=== PATIENT | male | born 1990 | race Hispanic/Latino ===

== ENCOUNTER 2020-02-13 15:28 | Emergency (ER) | payer BC, OTHER ==
[2020-02-13 15:51] LABS: Absolute Lymphocytes (CBC) 2.8 K/uL (0.7-4.9); Basophils % 0.7 % (0-1.3); Hematocrit 43.1 % (39.6-49.0); Lymphocytes % 32.3 % (15.3-44.8); RBC Red Blood Cell Count 4.99 M/uL (4.33-5.43)
[2020-02-13 16:03] LABS: Albumin 4.5 g/dL (3.4-5.0); Bilirubin Direct 0.2 mg/dL (0-0.2); Bilirubin Total 0.6 mg/dL (0.2-1.0); Potassium 3.3 mmol/L (3.5-5.1); Protein, Total 8.2 g/dL (6.4-8.2)
[2020-02-13] MEDS ORDERED: POTASSIUM CL SA 10 MEQ TAB PO ONE (16:35)
[2020-02-13] MEDS ORDERED: NA CHLORIDE 0.9% 1,000 ML ONE (16:35)
[2020-02-13 18:07] LABS: Potassium 3.5 mmol/L (3.5-5.1)
[2020-02-13 18:12] LABS: Urine Blood NEGATIVE (NEG); Urine Glucose NEGATIVE (NEG); Urine Protein NEGATIVE (NEG); Urine Specific Gravity 1.025 (1.005-1.030); Urine pH 6.5 (5.0-7.0)
--- NOTE | 2020-02-13 18:52 | EDPHYS ---
Physician Documentation [facility] Name: Curtis Carbone Age: 29 yrs Sex: Male : 1990 Arrival Date: 02/13/2020 Time: 15:32 Bed 19 Private MD: ED Physician Alvarado Doss HPI: 02/12 15:36 This 29 yrs old Male presents to ER via Unassigned with complaints of kb overheated, abd cramps. 15:36 The patient presents with abdominal pain that is diffuse. Onset: The symptoms/episode kb began/occurred just prior to arrival. The symptoms do not radiate. Associated signs and symptoms: Pertinent positives: "shaking". The symptoms are described as crampy. Modifying factors: The symptoms are alleviated by nothing, the symptoms are aggravated by nothing. Severity of pain: At its worst the pain was mild in the emergency department the pain is unchanged. The patient has not experienced similar symptoms in the past. The patient has not recently seen a physician. Pt reports he has been working outside since 0600 and started having abd cramps and shaking just [employer]. States he has been drinking water throughout the day. Believes he has heat exhaustion.. Historical: - Allergies: 15:32 Sulfa (Sulfonamide Antibiotics); aa5 - PMHx: 15:32 None; aa5 - PSHx: 15:32 Cholecystectomy; aa5 - Immunization history:: Adult Immunizations up to date. - Social history:: Smoking status: Patient denies any tobacco usage or history of. ROS: 15:36 ENT: Negative for injury, pain, and discharge, Neck: Negative for injury, pain, and kb swelling, Cardiovascular: Negative for chest pain, palpitations, and edema, Respiratory: Negative for shortness of breath, cough, wheezing, and pleuritic chest pain, : Negative for injury, bleeding, discharge, and swelling, MS/Extremity: Negative for injury and deformity, Skin: Negative for injury, rash, and discoloration. 15:36 Constitutional: Positive for chills, Negative for body aches, fatigue, fever, malaise, poor PO intake, weight loss. 15:36 Abdomen/GI: Positive for abdominal cramps, Negative for nausea, vomiting, and diarrhea. Exam: 15:39 Constitutional: This is a well developed, well nourished patient who is awake, alert, kb and in no acute distress. Head/Face: Normocephalic, atraumatic. Neck: Trachea midline, no thyromegaly or masses palpated, and no cervical lymphadenopathy. Supple, full range of motion without nuchal rigidity, or vertebral point tenderness. No Meningismus. Chest/axilla: Normal chest wall appearance and motion. Nontender with no deformity. No lesions are appreciated. Cardiovascular: Regular rate and rhythm with a normal S1 and S2. No gallops, murmurs, or rubs. Normal PMI, no JVD. No pulse deficits. Respiratory: Lungs have equal breath sounds bilaterally, clear to auscultation and percussion. No rales, rhonchi or wheezes noted. No increased work of breathing, no retractions or nasal flaring. Abdomen/GI: Soft, non-tender, with normal bowel sounds. No distension or tympany. No guarding or rebound. No evidence of tenderness throughout. Skin: Warm, dry with normal turgor. Normal color with no rashes, no lesions, and no evidence of cellulitis. MS/ Extremity: Pulses equal, no cyanosis. Neurovascular intact. Full, normal range of motion. Neuro: Awake and alert, GCS 15, oriented to person, place, time, and situation. Cranial nerves II-XII grossly intact. Motor strength 5/5 in all extremities. Sensory grossly intact. Cerebellar exam normal. Normal gait. Vital Signs: 15:35 BP 114 / 77; Pulse 84; Resp 16 S; Pulse Ox 100% on R/A; Weight 63.05 kg (R); Height 5 ca1 ft. 5 in. (165.10 cm) (R); 16:34 BP 117 / 73; Pulse 82; Resp 20 S; Pulse Ox 100% on R/A; ca1 17:20 BP 113 / 68; Pulse 79; Resp 19 S; Pulse Ox 100% on R/A; ca1 17:50 BP 108 / 82; Pulse 74; Resp 15 S; Pulse Ox 100% on R/A; ca1 18:50 BP 105 / 62; Pulse 75; Resp 16 S; Pulse Ox 100% on R/A; ca1 15:35 Body Mass Index 23.13 (63.05 kg, 165.10 cm) ca1 MDM: 15:32 Patient medically screened. kb 15:39 Data reviewed: vital signs, nurses notes. Data interpreted: Pulse oximetry: on room air kb is 100 %. Interpretation: normal. 16:47 ED course: Will recheck cpk and creatinine after 2L NS bolus. kb 18:50 Counseling: I had a detailed discussion with the patient and/or guardian regarding: the kb historical points, exam findings, and any diagnostic results supporting the discharge/admit diagnosis, lab results, the need for outpatient follow up, a family practitioner, to return to the emergency department if symptoms worsen or persist or if there are any questions or concerns that arise at home. 02/12 15:33 Order name: Basic Metabolic Panel; Complete Time: 16:05 kb 02/12 15:33 Order name: CBC with Diff; Complete Time: 16:34 kb 02/12 15:33 Order name: Hepatic Function; Complete Time: 16:05 kb 02/12 15:33 Order name: Lipase; Complete Time: 16:05 kb 02/12 15:33 Order name: CPK; Complete Time: 16:05 kb 02/12 17:37 Order name: Basic Metabolic Panel; Complete Time: 18:50 kb 02/12 15:33 Order name: IV Saline Lock; Complete Time: 15:34 kb 02/12 15:33 Order name: Labs collected and sent; Complete Time: 15:35 kb 02/12 15:33 Order name: Urine Dipstick-Ancillary (obtain specimen); Complete Time: 17:56 kb 04 17:37 Order name: CPK; Complete Time: 18:50 kb 04 17:57 Order name: Urine Dipstick--Ancillary (enter results); Complete Time: 18:50 em1 Administered Medications: 15:34 Drug: NS 0.9% 1000 ml Route: IV; Rate: 1000 ml; Site: right antecubital; ca1 16:10 Follow up: Response: No adverse reaction; IV Status: Completed infusion ca1 16:30 Drug: Potassium Chloride 20 mEq Route: PO; ca1 17:38 Follow up: Response: No adverse reaction ca1 16:31 Drug: NS 0.9% 1000 ml Route: IV; Rate: 1000 ml; Site: right antecubital; ca1 17:10 Follow up: Response: No adverse reaction; IV Status: Completed infusion ca1 Disposition: 02/13/20 18:51 Discharged to Home. Impression: Rhabdomyolysis, Exposure to excessive natural heat. - Condition is Stable. - Discharge Instructions: Rhabdomyolysis, Heat Exhaustion Information. - Medication Reconciliation Form, Thank You Letter, Antibiotic Education, Prescription Opioid Use form. - Follow up: Private Physician; When: 2 - 3 days; Reason: Recheck today's complaints, Continuance of care, Re-evaluation by your physician. Follow up: Emergency Department; When: As needed; Reason: Worsening of condition. Addendum: 02/17/2020 05:20 Co-signature as Attending Physician, Alvarado Doss MD I agree with the assessment and k dr plan of care. Signatures: Dispatcher [employer] EDMS Yessi Paulson, PRINCIPAL BIOSTATISTICIAN-C PRINCIPAL BIOSTATISTICIAN-Ckb Alvarado Doss MD MD kdr Mellisa Thomson, RN RN aa5 Seda Pal, RN RN ca1 Corrections: (The following items were deleted from the chart) 02/12 19:05 18:51 02/13/2020 18:51 Discharged to Home. Impression: Rhabdomyolysis; Exposure to ca1 excessive natural heat. Condition is Stable. Forms are Medication Reconciliation Form, Thank You Letter, Antibiotic Education, Prescription Opioid Use. Follow up: Private Physician; When: 2 - 3 days; Reason: Recheck today's complaints, Continuance of care, Re-evaluation by your physician. Follow up: Emergency Department; When: As needed; Reason: Worsening of condition. kb
--- NOTE | 2020-02-13 18:52 | ER ---
Nurse's Notes [facility] Name: Curtis Carbone Age: 29 yrs Sex: Male : 1990 Arrival Date: 02/13/2020 Time: 15:32 Bed 19 Private MD: Diagnosis: Rhabdomyolysis;Exposure to excessive natural heat Presentation: 02/12 15:32 Chief complaint: Patient states: works at [employer] outside and has been there since 0600 aa5 this morning. Pt c/o feeling crampy all over and c/o abd cramping. Pt also reports shaking. 15:32 Coronavirus screen: Proceed with normal triage. Patient denies a cough. Patient denies aa5 shortness of breath or difficulty breathing. Patient denies measured and/or subjective temperature greater than 100.4F prior to today's visit. Patient denies travel on a cruise ship or to a country the [facility] currently lists as an affected area. Patient denies contact with known and/or suspected case of COVID-19. Ebola Screen: Patient negative for fever greater than or equal to 101.5 degrees Fahrenheit, and additional compatible Ebola Virus Disease symptoms. Initial Sepsis Screen: Does the patient meet any 2 criteria? No. Patient's initial sepsis screen is negative. Does the patient have a suspected source of infection? No. Patient's initial sepsis screen is negative. Risk Assessment: Do you want to hurt yourself or someone else? Patient reports no desire to harm self or others. Onset of symptoms was February 2020. 15:32 Acuity: RAMIREZ 3 aa5 15:32 Method Of Arrival: Ambulatory aa5 Historical: - Allergies: 15:32 Sulfa (Sulfonamide Antibiotics); aa5 - PMHx: 15:32 None; aa5 - PSHx: 15:32 Cholecystectomy; aa5 - Immunization history:: Adult Immunizations up to date. - Social history:: Smoking status: Patient denies any tobacco usage or history of. Screenin:35 Abuse screen: Denies threats or abuse. Denies injuries from another. Nutritional ca1 screening: No deficits noted. Tuberculosis screening: No symptoms or risk factors identified. Fall Risk IV access (20 points). Assessment: 15:40 General: Appears in no apparent distress. comfortable, Behavior is cooperative, ca1 appropriate for age, anxious. Pain: Complains of pain in abdomen Quality of pain is described as crampy. Neuro: Level of Consciousness is awake, alert, obeys commands, Oriented to person, place, time, situation. 15:40 Cardiovascular: Heart tones S1 S2 present Capillary refill < 3 seconds Patient's skin ca1 is warm and dry. Respiratory: Airway is patent Respiratory effort is even, unlabored, Respiratory pattern is regular, symmetrical. 15:40 GI: Abdomen is flat, non-distended, Bowel sounds present X 4 quads. Abd is soft and non ca1 tender X 4 quads. : No signs and/or symptoms were reported regarding the genitourinary system. EENT: No signs and/or symptoms were reported regarding the EENT system. Derm: Skin is intact, is healthy with good turgor, Skin is pink, warm \T\ dry. Musculoskeletal: Circulation, motion, and sensation intact. Capillary refill < 3 seconds. 16:50 Reassessment: Patient appears in no apparent distress at this time. Patient and/or ca1 family updated on plan of care and expected duration. Pain level reassessed. Patient is alert, oriented x 3, equal unlabored respirations, skin warm/dry/pink. 17:50 Reassessment: Patient appears in no apparent distress at this time. Patient and/or ca1 family updated on plan of care and expected duration. Pain level reassessed. Patient is alert, oriented x 3, equal unlabored respirations, skin warm/dry/pink. 18:50 Reassessment: Patient appears in no apparent distress at this time. Patient and/or ca1 family updated on plan of care and expected duration. Pain level reassessed. Vital Signs: 15:35 BP 114 / 77; Pulse 84; Resp 16 S; Pulse Ox 100% on R/A; Weight 63.05 kg (R); Height 5 ca1 ft. 5 in. (165.10 cm) (R); 16:34 BP 117 / 73; Pulse 82; Resp 20 S; Pulse Ox 100% on R/A; ca1 17:20 BP 113 / 68; Pulse 79; Resp 19 S; Pulse Ox 100% on R/A; ca1 17:50 BP 108 / 82; Pulse 74; Resp 15 S; Pulse Ox 100% on R/A; ca1 18:50 BP 105 / 62; Pulse 75; Resp 16 S; Pulse Ox 100% on R/A; ca1 15:35 Body Mass Index 23.13 (63.05 kg, 165.10 cm) ca1 ED Course: 15:32 Patient arrived in ED. em1 15:32 Yessi Paulson FNP-C is [facility]. kb 15:32 Alvarado Doss MD is Attending Physician. kb 15:32 Arm band placed on. aa5 15:34 Seda Pal, RN is Primary Nurse. ca1 15:35 Patient has correct armband on for positive identification. Bed in low position. Call ca1 light in reach. Side rails up X2. golf ball trimmer on. Pulse ox on. NIBP on. Door closed. Noise minimized. Lights dimmed. 15:39 Triage completed. aa5 15:40 No provider procedures requiring assistance completed. Maintain EMS IV. Dressing ca1 intact. Good blood return noted. Site clean \T\ dry. Gauge \T\ site: g18 RAC. 19:05 IV discontinued, intact, bleeding controlled, No redness/swelling at site. Pressure ca1 dressing applied. Administered Medications: 15:34 Drug: NS 0.9% 1000 ml Route: IV; Rate: 1000 ml; Site: right antecubital; ca1 16:10 Follow up: Response: No adverse reaction; IV Status: Completed infusion ca1 16:30 Drug: Potassium Chloride 20 mEq Route: PO; ca1 17:38 Follow up: Response: No adverse reaction ca1 16:31 Drug: NS 0.9% 1000 ml Route: IV; Rate: 1000 ml; Site: right antecubital; ca1 17:10 Follow up: Response: No adverse reaction; IV Status: Completed infusion ca1 Outcome: 18:51 Discharge ordered by . kb 19:05 Discharged to home ambulatory. ca1 19:05 Condition: stable 19:05 Discharge instructions given to patient, Instructed on discharge instructions, follow up and referral plans. Demonstrated understanding of instructions, follow-up care. 19:05 Patient left the ED. ca1 Signatures: Yessi Paulson FNP-C FNP-Jer Servin em1 Mellisa Thomson, MELBA RN aa5 Seda Pal RN RN ca1 Corrections: (The following items were deleted from the chart) 16:43 15:40 Neuro: Level of Consciousness is awake, alert, obeys commands, Oriented to ca1 person, place, time, situation, ca1
[2020-02-13 19:19] VITALS: O2SAT 100
[2020-02-13 19:24] VITALS: BP 105/62
== END 2020-02-13 19:05 | disposition home or self-care (01) ==
LOC: ER 15:28
DX: M62.82 Rhabdomyolysis (principal); T67.8XXA Other effects of heat and light, initial encounter; X32.XXXA Exposure to sunlight, initial encounter; Y93.89 Activity, other specified; Y92.89 Other specified places as the place of occurrence of the external cause; Y99.0 Civilian activity done for income or pay; Z57.6 Occupational exposure to extreme temperature
CPT/HCPCS: 85025; 80048 ×2; 36415; 82550 ×2; 80076; 81003; 83690; 96360; 99284; J7030

== ENCOUNTER 2021-02-25 20:36 | Emergency (ER) | payer BC, OTHER ==
--- NOTE | 2021-02-25 21:21 | EDPHYS ---
Physician Documentation [facility] Name: Curtis Carbone Age: 30 yrs Sex: Male : 1990 Arrival Date: 02/25/2021 Time: 20:40 Bed 6 Private MD: PRIYA Physician Martin Guerrero HPI: 02/25 21:14 This 30 yrs old Male presents to ER via Ambulatory with complaints of Arm mary Pain, Arm swollen. 21:14 The patient or guardian complains of pain, that is acute. The complaints affect the mary dorsal aspect of right forearm and palmar aspect of right forearm. Context: The problem was sustained at an unknown location. Onset: The symptoms/episode began/occurred 3 day(s) ago. Treatment prior to arrival includes: no previous treatment. Modifying factors: The symptoms are alleviated by remaining still, the symptoms are aggravated by movement. Associated signs and symptoms: The patient has no apparent associated signs or symptoms. Severity of symptoms: At their worst the symptoms were mild, in the emergency department the symptoms are unchanged. The patient has not experienced similar symptoms in the past. Historical: - Allergies: 20:50 Sulfa (Sulfonamide Antibiotics); ca1 - Home Meds: 20:50 None [Active]; ca1 - PMHx: 20:50 None; ca1 - PSHx: 20:50 Cholecystectomy; ca1 - Immunization history:: Client reports having NOT received the Covid vaccine. Flu vaccine is not up to date. - Social history:: Smoking status: Patient denies any tobacco usage or history of. - Family history:: not pertinent. ROS: 21:14 Constitutional: Negative for fever, chills, and weight loss, Eyes: Negative for injury, mary pain, redness, and discharge, ENT: Negative for injury, pain, and discharge, Neck: Negative for injury, pain, and swelling, Cardiovascular: Negative for chest pain, palpitations, and edema, Respiratory: Negative for shortness of breath, cough, wheezing, and pleuritic chest pain, Abdomen/GI: Negative for abdominal pain, nausea, vomiting, diarrhea, and constipation, Back: Negative for injury and pain, : Negative for injury, bleeding, discharge, and swelling, Skin: Negative for injury, rash, and discoloration, Neuro: Negative for headache, weakness, numbness, tingling, and seizure, Psych: Negative for depression, anxiety, suicide ideation, homicidal ideation, and hallucinations, Allergy/Immunology: Negative for hives, rash, and allergies, Endocrine: Negative for neck swelling, polydipsia, polyuria, polyphagia, and marked weight changes, Hematologic/Lymphatic: Negative for swollen nodes, abnormal bleeding, and unusual bruising. 21:14 MS/extremity: Positive for pain, of the palmar aspect of right forearm. Exam: 21:14 Constitutional: This is a well developed, well nourished patient who is awake, alert, mary and in no acute distress. Head/Face: Normocephalic, atraumatic. Eyes: Pupils equal round and reactive to light, extra-ocular motions intact. Lids and lashes normal. Conjunctiva and sclera are non-icteric and not injected. Cornea within normal limits. Periorbital areas with no swelling, redness, or edema. ENT: Nares patent. No nasal discharge, no septal abnormalities noted. Tympanic membranes are normal and external auditory canals are clear. Oropharynx with no redness, swelling, or masses, exudates, or evidence of obstruction, uvula midline. Mucous membranes moist. Neck: Trachea midline, no thyromegaly or masses palpated, and no cervical lymphadenopathy. Supple, full range of motion without nuchal rigidity, or vertebral point tenderness. No Meningismus. Chest/axilla: Normal chest wall appearance and motion. Nontender with no deformity. No lesions are appreciated. Cardiovascular: Regular rate and rhythm with a normal S1 and S2. No gallops, murmurs, or rubs. Normal PMI, no JVD. No pulse deficits. Respiratory: Lungs have equal breath sounds bilaterally, clear to auscultation and percussion. No rales, rhonchi or wheezes noted. No increased work of breathing, no retractions or nasal flaring. Abdomen/GI: Soft, non-tender, with normal bowel sounds. No distension or tympany. No guarding or rebound. No evidence of tenderness throughout. Back: No spinal tenderness. No costovertebral tenderness. Full range of motion. Male : Normal genitalia with no discharge or lesions. Skin: Warm, dry with normal turgor. Normal color with no rashes, no lesions, and no evidence of cellulitis. Neuro: Awake and alert, GCS 15, oriented to person, place, time, and situation. Cranial nerves II-XII grossly intact. Motor strength 5/5 in all extremities. Sensory grossly intact. Cerebellar exam normal. Normal gait. Psych: Awake, alert, with orientation to person, place and time. Behavior, mood, and affect are within normal limits. 21:14 Musculoskeletal/extremity: ROM: intact in all extremities, full active range of motion, full passive range of motion, Circulation is intact in all extremities. Sensation intact. Compartment Syndrome exam of affected extremity: is normal. Joints: All joints appear normal with full range of motion. Weight bearing: able to fully bear weight, DVT Exam: no swelling, negative Homans' sign noted on exam, no appreciated bluish discoloration, no erythema, no increased warmth, pain, tenderness. Vital Signs: 20:48 BP 121 / 75; Pulse 89; Resp 16 S; Temp 98.5(TE); Pulse Ox 100% on R/A; Weight 68.04 kg ca1 (R); Height 5 ft. 6 in. (167.64 cm) (R); Pain 3/10; 20:48 Body Mass Index 24.21 (68.04 kg, 167.64 cm) ca1 MDM: 20:51 Patient medically screened. mary 21:18 Differential diagnosis: contusion, tendonitis. Data reviewed: vital signs, nurses mary notes. Data interpreted: surveillance system monitor: not applicable for this patient encounter. rate is 89 beats/min, rhythm is regular, Pulse oximetry: on room air is 100 %. Counseling: I had a detailed discussion with the patient and/or guardian regarding: the historical points, exam findings, and any diagnostic results supporting the discharge/admit diagnosis, lab results, radiology results. Administered Medications: 21:29 Drug: Motrin (ibuprofen) 600 mg Route: PO; ak2 Disposition: 02/25/21 21:20 Discharged to Home. Impression: Strain of flexor muscle, fascia and tendon of left thumb at forearm level. - Condition is Stable. - Discharge Instructions: Muscle Strain, Muscle Strain, [id number]. - Prescriptions for Ibuprofen 600 mg Oral Tablet - take 1 tablet by ORAL route every 6 hours As needed take with food; 20 tablet. - Work release form, Medication Reconciliation Form, Thank You Letter, Antibiotic Education, Prescription Opioid Use form. - Follow up: Private Physician; When: 1 - 2 days; Reason: Recheck today's complaints, Continuance of care, Re-evaluation by your physician. - Problem is new. - Symptoms have improved. Signatures: Martin Guerrero MD MD cha Acob, Cheryl, RN RN ca1 [place], Anthony ak2 Corrections: (The following items were deleted from the chart) 21:32 21:20 02/25/2021 21:20 Discharged to Home. Impression: Strain of flexor muscle, fascia ak2 and tendon of left thumb at forearm level. Condition is Stable. Forms are Medication Reconciliation Form, Thank You Letter, Antibiotic Education, Prescription Opioid Use. Follow up: Private Physician; When: 1 - 2 days; Reason: Recheck today's complaints, Continuance of care, Re-evaluation by your physician. Problem is new. Symptoms have improved. mary
--- NOTE | 2021-02-25 21:21 | ER ---
Nurse's Notes [facility] Name: Curtis Carbone Age: 30 yrs Sex: Male : 1990 Arrival Date: 02/25/2021 Time: 20:40 Bed 6 Private MD: Diagnosis: Strain of flexor muscle, fascia and tendon of left thumb at forearm level Presentation: 02/25 20:48 Chief complaint: Patient states: R forearm pain x 3 days. Denies injury. Coronavirus ca1 screen: Client denies travel out of the [place] in the last 14 days. At this time, the client does not indicate any symptoms associated with coronavirus-19. Ebola Screen: Patient negative for fever greater than or equal to 101.5 degrees Fahrenheit, and additional compatible Ebola Virus Disease symptoms Patient denies exposure to infectious person. Patient denies travel to an Ebola-affected area in the 21 days before illness onset. No symptoms or risks identified at this time. Initial Sepsis Screen: Does the patient meet any 2 criteria? No. Patient's initial sepsis screen is negative. Does the patient have a suspected source of infection? No. Patient's initial sepsis screen is negative. Risk Assessment: Do you want to hurt yourself or someone else? Patient reports no desire to harm self or others. Onset of symptoms was February 25, 2021. 20:48 Method Of Arrival: Ambulatory ca1 20:48 Acuity: RAMIREZ 4 ca1 Triage Assessment: 20:56 General: Appears in no apparent distress. Behavior is calm, cooperative. Pain: ak2 Complains of pain in right arm. Historical: - Allergies: 20:50 Sulfa (Sulfonamide Antibiotics); ca1 - Home Meds: 20:50 None [Active]; ca1 - PMHx: 20:50 None; ca1 - PSHx: 20:50 Cholecystectomy; ca1 - Immunization history:: Client reports having NOT received the Covid vaccine. Flu vaccine is not up to date. - Social history:: Smoking status: Patient denies any tobacco usage or history of. - Family history:: not pertinent. Screenin:55 Abuse screen: Denies threats or abuse. Denies injuries from another. Nutritional ak2 screening: No deficits noted. Tuberculosis screening: No symptoms or risk factors identified. Fall Risk None identified. Vital Signs: 20:48 BP 121 / 75; Pulse 89; Resp 16 S; Temp 98.5(TE); Pulse Ox 100% on R/A; Weight 68.04 kg ca1 (R); Height 5 ft. 6 in. (167.64 cm) (R); Pain 3/10; 20:48 Body Mass Index 24.21 (68.04 kg, 167.64 cm) ca1 ED Course: 20:40 Patient arrived in ED. es 20:49 Triage completed. ca1 20:50 Martin Guerrero MD is Attending Physician. [facility] 20:50 Arm band placed on right wrist. ca1 20:[address] Primary Nurse. ak2 20:55 Patient has correct armband on for positive identification. ak2 20:55 No provider procedures requiring assistance completed. ak2 Administered Medications: 21:29 Drug: Motrin (ibuprofen) 600 mg Route: PO; ak2 Outcome: 21:20 Discharge ordered by . [facility] 21:31 Discharged to home ambulatory. ak2 21:31 Condition: good 21:31 Discharge instructions given to patient. 21:32 Patient left the ED. ak2 Signatures: Martin Guerrero MD MD cha Salyer, Edna es Acob, Cheryl, RN RN [facility] Jason [address] ak2
[2021-02-25 21:36] VITALS: BP 121/75; TEMP 98.5; O2SAT 100
[2021-02-25] MEDS ORDERED: IBUPROFEN 200 MG TAB PO ONE (21:46)
[2021-02-25] MEDS ORDERED: IBUPROFEN 400 MG TAB ONE (21:46)
== END 2021-02-25 21:32 | disposition home or self-care (01) ==
LOC: ER 20:36
DX: S56.011A Strain of flexor muscle, fascia and tendon of right thumb at forearm level, initial encounter (principal); Z88.2 Allergy status to sulfonamides
CPT/HCPCS: 99283

== ENCOUNTER 2021-03-06 11:02 | Emergency (ER) | payer BC, OTHER, SELFPAY ==
[2021-03-06] MEDS ORDERED: HYDROCODONE/APAP 7.5/325 MG TAB ONE (12:48)
--- NOTE | 2021-03-06 13:08 | ER ---
Nurse's Notes [facility] Name: Curtis Carbone Age: 31 yrs Sex: Male : 1990 Arrival Date: 03/06/2021 Time: 11:08 Bed 26 Private MD: Diagnosis: Crushing injury of left foot Presentation: 03/06 11:16 Chief complaint: Patient states: Ran over L foot with a palate at 9 am today while ll1 working at [employer]. States toe was oozing blood earlier. Coronavirus screen: Client denies travel out of the [place] in the last 14 days. At this time, the client does not indicate any symptoms associated with coronavirus-19. Ebola Screen: Patient denies travel to an Ebola-affected area in the 21 days before illness onset. Initial Sepsis Screen: Does the patient meet any 2 criteria? No. Patient's initial sepsis screen is negative. Does the patient have a suspected source of infection? No. Patient's initial sepsis screen is negative. Risk Assessment: Do you want to hurt yourself or someone else? Patient reports no desire to harm self or others. Onset of symptoms was March 06, 2021. 11:16 Method Of Arrival: Ambulatory 1 11:16 Acuity: RAMIREZ 4 ll1 Historical: - Allergies: 11:18 Sulfa (Sulfonamide Antibiotics); ll1 - PSHx: 11:18 Cholecystectomy; ll1 - Immunization history:: Client reports having NOT received the Covid vaccine. Last tetanus immunization: not immunized Flu vaccine is not up to date. - Social history:: Smoking status: Patient denies any tobacco usage or history of. Screenin:23 Abuse screen: Denies threats or abuse. Denies injuries from another. Nutritional zb screening: No deficits noted. Tuberculosis screening: No symptoms or risk factors identified. Fall Risk None identified. Assessment: 12:22 General: Appears in no apparent distress. uncomfortable, Behavior is calm, cooperative, zb appropriate for age. Pain: Complains of pain in left foot Pain currently is 9 out of 10 on a pain scale. Quality of pain is described as aching, tender, throbbing. Neuro: Level of Consciousness is awake, alert, obeys commands, Oriented to person, place, time, situation. Cardiovascular: No deficits noted. Respiratory: No deficits noted. GI: No deficits noted. Derm: Wound noted left foot. Musculoskeletal:. Injury Description: Crush injury sustained to left foot. 13:00 Reassessment: Patient appears in no apparent distress at this time. Patient and/or zb family updated on plan of care and expected duration. Pain level reassessed. Patient is alert, oriented x 3, equal unlabored respirations, skin warm/dry/pink. 14:17 Reassessment: Patient appears in no apparent distress at this time. Patient and/or zb family updated on plan of care and expected duration. Pain level reassessed. Patient is alert, oriented x 3, equal unlabored respirations, skin warm/dry/pink. wound cleaned. crutch teaching completed and demonstrated. Vital Signs: 11:16 BP 145 / 84; Pulse 68; Resp 17; Temp 98.0; Pulse Ox 98% ; Weight 66.68 kg; Height 5 ft. ll1 6 in. (167.64 cm); Pain 8/10; 14:16 BP 120 / 84; Pulse 60; Resp 16; Pulse Ox 100% on R/A; zb 11:16 Body Mass Index 23.73 (66.68 kg, 167.64 cm) ll1 ED Course: 11:08 Patient arrived in ED. am2 11:17 Triage completed. ll1 11:18 Arm band placed on. ll1 12:16 Martin Mak PA is PHCP. cp 12:16 Martin Guerrero MD is Attending Physician. cp 12:22 Lorena Wright RN is Primary Nurse. zb 12:23 Patient has correct armband on for positive identification. Pulse ox on. NIBP on. Door zb closed. Noise minimized. 12:33 Foot Left 3 View XRAY In Process Unspecified. EDMS 14:16 No provider procedures requiring assistance completed. Patient did not have IV access zb during this emergency room visit. 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 Exp: zb 11/13/2022. Lot #: [id number]. } Route: IM; Site: right deltoid; 14:15 Follow up: Response: No adverse reaction zb Outcome: 13:08 Discharge ordered by . nirav 14:16 Discharged to home ambulatory, with crutches. zb 14:16 Condition: stable 14:16 Discharge instructions given to patient, Instructed on discharge instructions, follow up and referral plans. medication usage, Demonstrated understanding of instructions, follow-up care, medications, Prescriptions given X 2. 14:17 Patient left the ED. zb Signatures: Dispatcher [employer] EDMS Martin Mak PA PA cp Moreno, Amanda am2 Lewis, Lynsay, RN RN ll1 Lorena Wright RN RN milad
--- NOTE | 2021-03-06 13:08 | EDPHYS ---
Physician Documentation [facility] Name: Curtis Carbone Age: 31 yrs Sex: Male : 1990 Arrival Date: 03/06/2021 Time: 11:08 Bed 26 Private MD: PRIYA Physician Martin Guerrero HPI: 03/06 12:25 This 31 yrs old Male presents to ER via Ambulatory with complaints of Foot cp Injury. 12:25 The patient presents with a crush injury, pallet trevor with pallet loaded with cases of cp water. The complaints affect the dorsum of left foot. Context: The problem was sustained at work, the patient can fully bear weight, the patient is able to ambulate, with moderate difficulty. Onset: The symptoms/episode began/occurred today. Associated signs and symptoms: Pertinent negatives fever, numbness. Treatment prior to arrival includes: no previous treatment. Historical: - Allergies: 11:18 Sulfa (Sulfonamide Antibiotics); ll1 - PSHx: 11:18 Cholecystectomy; ll1 - Immunization history:: Client reports having NOT received the Covid vaccine. Last tetanus immunization: not immunized Flu vaccine is not up to date. - Social history:: Smoking status: Patient denies any tobacco usage or history of. ROS: 12:30 MS/extremity: Positive for injury or acute deformity, pain, tenderness, of the left cp foot, Negative for paresthesias. 12:30 Constitutional: Negative for body aches, chills, fever, poor PO intake. cp 12:30 All other systems are negative. Exam: 12:33 Constitutional: The patient appears in no acute distress, alert, awake, non-toxic, well cp developed, well nourished. 12:33 Head/Face: Normocephalic, atraumatic. cp 12:33 Chest/axilla: Inspection: normal. 12:33 Cardiovascular: Rate: normal. 12:33 Respiratory: the patient does not display signs of respiratory distress, Respirations: normal, no use of accessory muscles. 12:33 Abdomen/GI: Inspection: abdomen appears normal. 12:33 Back: pain, is absent, ROM is normal. 12:33 Musculoskeletal/extremity: Extremities: grossly normal except: noted in the left foot: pain, tenderness, mild swelling, mild bleeding noted from lateral side nailbed of left great toe, There is no evidence of decreased ROM, deformity, Pulses: noted to be 2+ in the left dorsalis pedis artery. Vital Signs: 11:16 BP 145 / 84; Pulse 68; Resp 17; Temp 98.0; Pulse Ox 98% ; Weight 66.68 kg; Height 5 ft. ll1 6 in. (167.64 cm); Pain 8/10; 14:16 BP 120 / 84; Pulse 60; Resp 16; Pulse Ox 100% on R/A; zb 11:16 Body Mass Index 23.73 (66.68 kg, 167.64 cm) ll1 MDM: 12:21 Patient medically screened. cp 13:00 Differential diagnosis: dislocation, open fracture, closed fracture, contusion, cp abrasion. 13:05 ED course: No results found on inquiry of [facility] prescription monitor website. cp 13:07 Data reviewed: vital signs, nurses notes, radiologic studies, plain films. cp 13:07 Test interpretation: by ED physician or midlevel provider: plain radiologic studies, cp xrays of left foot negative for fracture and/or dislocation. Counseling: I had a detailed discussion with the patient and/or guardian regarding: the historical points, exam findings, and any diagnostic results supporting the discharge/admit diagnosis, radiology results, the need for outpatient follow up, a family practitioner, to return to the emergency department if symptoms worsen or persist or if there are any questions or concerns that arise at home. Response to treatment: the patient's symptoms have markedly improved after treatment, and as a result, I will discharge patient. 03/06 11:21 Order name: Foot Left 3 View XRAY; Complete Time: 13:40 03/06 13:40 Interpretation: Reviewed report. 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 Exp: zb 11/13/2022. Lot #: [id number]. } Route: IM; Site: right deltoid; 14:15 Follow up: Response: No adverse reaction zb Disposition: 13:30 Chart complete. cp Disposition: 03/06/21 13:08 Discharged to Home. Impression: Crushing injury of left foot. - Condition is Stable. - Discharge Instructions: Crush Injury of the Foot. - Prescriptions for Naprosyn 500 mg Oral Tablet - take 1 tablet by ORAL route 2 times per day take with food; 20 tablet. Tramadol 50 mg Oral Tablet - take 1 tablet by ORAL route every 8 hours as needed; 12 tablet. - Medication Reconciliation Form, Thank You Letter, Antibiotic Education, Prescription Opioid Use form. - Follow up: Private Physician; When: 1 - 2 days; Reason: Recheck today's complaints. - Problem is new. - Symptoms have improved. Signatures: Dispatcher [employer] EDMS Martin Mak PA PA cp Ugo Power RN RN ll1 Lorena Wright RN RN zkalee Corrections: (The following items were deleted from the chart) 14:17 13:08 03/06/2021 13:08 Discharged to Home. Impression: Crushing injury of left foot. zb Condition is Stable. Forms are Medication Reconciliation Form, Thank You Letter, Antibiotic Education, Prescription Opioid Use. Follow up: Private Physician; When: 1 - 2 days; Reason: Recheck today's complaints. Problem is new. Symptoms have improved. cp
--- NOTE | 2021-03-06 13:28 | RAD REPORT ---
EXAM DESCRIPTION: RAD - Foot Left 3 View - 03/06/2021 12:33 pm CLINICAL HISTORY: SMASH INJURY COMPARISON: No comparisons FINDINGS: No fracture, dislocation or periosteal reaction. No acute or destructive bony process. No air or foreign body in the soft tissues. IMPRESSION: Negative left foot examination.
[2021-03-06 14:23] VITALS: TEMP 98
[2021-03-06 14:24] VITALS: BP 120/84; O2SAT 100
[2021-03-06] MEDS ORDERED: TETANUS & DIPHTHERIA TOX,ADULT 0.5 ML VIAL ONE (14:24)
== END 2021-03-06 14:17 | disposition home or self-care (01) ==
LOC: ER 11:02
DX: S97.82XA Crushing injury of left foot, initial encounter (principal); Z23 Encounter for immunization; Z88.2 Allergy status to sulfonamides
CPT/HCPCS: 90471; 90714; 99284

== ENCOUNTER 2021-04-07 10:10 | Emergency (ER) | payer BC, OTHER ==
--- NOTE | 2021-04-07 13:31 | EDPHYS ---
Physician Documentation [facility] Name: Curtis Carbone Age: 31 yrs Sex: Male : 1990 Arrival Date: 04/07/2021 Time: 10:11 Bed 15 Private MD: ED Physician Dhiraj Rivera HPI: 04/07 13:00 This 31 yrs old Male presents to ER via Ambulatory with complaints of r/o cp covid. 13:00 The patient presents with sore throat. The patient describes throat pain as constant. cp Onset: The symptoms/episode began/occurred yesterday. Associated signs and symptoms: Pertinent positives: fatigue, Pertinent negatives cough, diarrhea, dysphagia, earache, fever, shortness of breath, vomiting. 13:30 Patient reports concerned he may have COVID due to exposure at work. cp Historical: - Allergies: 11:03 Sulfa (Sulfonamide Antibiotics); kg - Home Meds: 11:03 None [Active]; kg - PMHx: 11:03 None; kg - PSHx: 11:03 Appendectomy; Cholecystectomy; kg - Immunization history:: Adult Immunizations up to date, Client reports having NOT received the Covid vaccine. - Social history:: Smoking status: Patient denies any tobacco usage or history of. ROS: 13:05 Constitutional: Positive for fatigue, Negative for body aches, chills, fever, poor PO cp intake. 13:05 Eyes: Negative for injury, pain, redness, and discharge. cp 13:05 ENT: Positive for sore throat, Negative for drainage from ear(s), ear pain, difficulty swallowing, difficulty handling secretions. 13:05 Cardiovascular: Negative for chest pain, palpitations. 13:05 Respiratory: Negative for cough, shortness of breath, wheezing. 13:05 Abdomen/GI: Negative for abdominal pain, nausea, vomiting, and diarrhea. 13:05 Skin: Negative for rash. 13:05 Neuro: Negative for altered mental status, headache, weakness. 13:05 All other systems are negative. Exam: 13:10 Constitutional: The patient appears in no acute distress, alert, awake, non-toxic, well cp developed, well nourished. 13:10 Head/Face: Normocephalic, atraumatic. cp 13:10 Eyes: Periorbital structures: appear normal, Conjunctiva: normal, no exudate, no injection, Sclera: no appreciated abnormality, Lids and lashes: appear normal, bilaterally. 13:10 ENT: External ear(s): are unremarkable, Nose: is normal, Mouth: Lips: moist, Oral mucosa: moist, Posterior pharynx: Airway: no evidence of obstruction, patent, Tonsils: with erythema, no enlargement, no exudate, Uvula: midline, swelling, is not appreciated, erythema, that is mild, exudate, is not appreciated. 13:10 Neck: ROM/movement: Meningeal signs: are not present, nuchal rigidity, is not appreciated, Lymph nodes: no appreciated lymphadenopathy. 13:10 Chest/axilla: Inspection: normal, Palpation: is normal, no crepitus, no tenderness. 13:10 Cardiovascular: Rate: normal, Rhythm: regular. 13:10 Respiratory: the patient does not display signs of respiratory distress, Respirations: normal, no use of accessory muscles, no retractions, labored breathing, is not present, Breath sounds: are clear throughout, no decreased breath sounds, no stridor, no wheezing. 13:10 Abdomen/GI: Exam negative for discomfort, distension, guarding, Inspection: abdomen appears normal. 13:10 Skin: no rash present. Vital Signs: 11:01 BP 123 / 66; Pulse 66; Resp 20; Temp 98.7(O); Pulse Ox 100% ; Weight 64.41 kg (R); kg Height 5 ft. 5 in. (165.10 cm); Pain 1/10; 13:41 Pulse 65; Resp 19 S; Pulse Ox 99% on R/A; jd3 11:01 Body Mass Index 23.63 (64.41 kg, 165.10 cm) kg MDM: 12:59 Patient medically screened. cp 13:30 Differential diagnosis: bronchitis, epiglottitis, group A strep tonsillitis, influenza, cp laryngitis, peritonsillar abscess pharyngitis, retropharyngeal abcess tonsillitis, upper respiratory infection, uvulitis. 13:30 Data reviewed: vital signs, nurses notes, lab test result(s), and as a result, I will cp discharge patient. 13:30 Counseling: I had a detailed discussion with the patient and/or guardian regarding: the cp historical points, exam findings, and any diagnostic results supporting the discharge/admit diagnosis, lab results, to return to the emergency department if symptoms worsen or persist or if there are any questions or concerns that arise at home. 04/07 11:01 Order name: Strep; Complete Time: 13:09 kg 04/07 13:09 Interpretation: Reviewed. cp 04/07 12:36 Order name: Throat Culture EDDC 04/07 12:53 Order name: SARS-COV-2 RT PCR; Complete Time: 13:09 EDDC 04/07 13:09 Interpretation: Results reviewed. cp Administered Medications: No medications were administered Disposition: 18:14 Co-signature as Attending Physician, Dhiraj Rivera MD. rn Disposition Summary: 04/07/21 13:30 Discharge Ordered Location: Home cp Problem: new cp Symptoms: are unchanged cp Condition: Stable cp Diagnosis - Acute pharyngitis, unspecified cp Followup: cp - With: Private Physician - When: 2 - 3 days - Reason: Worsening of condition Discharge Instructions: - Discharge Summary Sheet cp - Pharyngitis cp - Sore Throat cp Forms: - Medication Reconciliation Form cp - Thank You Letter cp - Work release form cp - Antibiotic Education cp - Prescription Opioid Use cp Signatures: Dispatcher [employer] EDDC Dhiraj Rivera MD MD rn Martin Mak PA PA cp Kylee Vernon, RN RN kg Corrections: (The following items were deleted from the chart) 11:44 11:01 CORONAVIRUS+ ordered. EDDC EDDC 18:08 13:30 This 31 yrs old Male presents to ER via Ambulatory with complaints of cp r/o covid. cp 18:08 13:30 The patient presents with sore throat, cp cp 18:08 13:30 The patient describes throat pain as constant, cp cp 18:08 13:30 Onset: The symptoms/episode began/occurred yesterday, cp cp 18:08 13:30 Associated signs and symptoms: Pertinent positives: fatigue, Pertinent negatives cp cough, diarrhea, dysphagia, earache, fever, shortness of breath, vomiting, cp 18:08 13:30 Patient reports concerned he may have COVID due to exposure at work. cp cp 04/08 10:29 04/07 13:33 Constitutional: Positive for fatigue, Negative for body aches, chills, cp fever, poor PO intake, cp
--- NOTE | 2021-04-07 13:31 | ER ---
Nurse's Notes [facility] Name: uCrtis Carbone Age: 31 yrs Sex: Male : 1990 Arrival Date: 04/07/2021 Time: 10:11 Bed 15 Private MD: Diagnosis: Acute pharyngitis, unspecified Presentation: 04/07 11:01 Chief complaint: Patient states: Sore throat, fatigue starting yesterday. Pt stated he kg was exposed to COVID and would like to be tested and that his daughter has RSV. Coronavirus screen: Client denies travel out of the [place] in the last 14 days. At this time, unable to obtain information related to travel outside the [place] Client presents with at least one sign or symptom that may indicate coronavirus-19. Standard/surgical mask placed on the client. Provider contacted for isolation considerations. 11:01 Method Of Arrival: Ambulatory kg 11:01 Ebola Screen: Patient negative for fever greater than or equal to 101.5 degrees kg Fahrenheit, and additional compatible Ebola Virus Disease symptoms Patient denies exposure to infectious person. Patient denies travel to an Ebola-affected area in the 21 days before illness onset. Initial Sepsis Screen: Does the patient meet any 2 criteria? No. Patient's initial sepsis screen is negative. Does the patient have a suspected source of infection? No. Patient's initial sepsis screen is negative. Risk Assessment: Do you want to hurt yourself or someone else? Patient reports no desire to harm self or others. Onset of symptoms was April 06, 2021. 11:01 Acuity: RAMIREZ 4 kg Triage Assessment: 11:03 General: Appears in no apparent distress. Behavior is calm, cooperative, appropriate kg for age, quiet. Pain: Complains of pain in neck Pain currently is 1 out of 10 on a pain scale. at worst was 1 out of 10 on a pain scale. level that patient reports is acceptable is 1 out of 10 on a pain scale. Quality of pain is described as soreness. EENT: Reports difficulty swallowing since 04/06. Historical: - Allergies: 11:03 Sulfa (Sulfonamide Antibiotics); kg - Home Meds: 11:03 None [Active]; kg - PMHx: 11:03 None; kg - PSHx: 11:03 Appendectomy; Cholecystectomy; kg - Immunization history:: Adult Immunizations up to date, Client reports having NOT received the Covid vaccine. - Social history:: Smoking status: Patient denies any tobacco usage or history of. Screenin:05 Abuse screen: Denies threats or abuse. Denies injuries from another. Nutritional kg screening: No deficits noted. Tuberculosis screening: No symptoms or risk factors identified. Fall Risk None identified. No fall in past 12 months (0 pts). No secondary diagnosis (0 pts). No IV (0 pts). Ambulatory Aid- None/Bed Rest/Nurse Assist (0 pts). Gait- Normal/Bed Rest/Wheelchair (0 pts) Mental Status- Oriented to own ability (0 pts). Total Anne Fall Scale indicates No Risk (0-24 pts). Assessment: 13:19 General: Appears in no apparent distress. comfortable, Behavior is calm, cooperative, jd3 appropriate for age. Pain: Complains of pain in throat Quality of pain is described as aching. Neuro: Level of Consciousness is awake, alert, obeys commands, Oriented to person, place, time, situation. Cardiovascular: Denies chest pain, Capillary refill < 3 seconds Patient's skin is warm and dry. Respiratory: Reports cough that is persistent Airway is patent Respiratory effort is even, unlabored, Respiratory pattern is regular, symmetrical. GI: No signs and/or symptoms were reported involving the gastrointestinal system. : No signs and/or symptoms were reported regarding the genitourinary system. EENT: No signs and/or symptoms were reported regarding the EENT system. Derm: Skin is intact, Skin is dry, Skin is normal, Skin temperature is warm. Musculoskeletal: Circulation, motion, and sensation intact. Range of motion: intact in all extremities. 13:41 Reassessment: Patient appears in no apparent distress at this time. Patient and/or jd3 family updated on plan of care and expected duration. Pain level reassessed. Patient is alert, oriented x 3, equal unlabored respirations, skin warm/dry/pink. Vital Signs: 11:01 BP 123 / 66; Pulse 66; Resp 20; Temp 98.7(O); Pulse Ox 100% ; Weight 64.41 kg (R); kg Height 5 ft. 5 in. (165.10 cm); Pain 09/20; 13:41 Pulse 65; Resp 19 S; Pulse Ox 99% on R/A; jd3 11:01 Body Mass Index 23.63 (64.41 kg, 165.10 cm) kg ED Course: 10:11 Patient arrived in ED. as 11:03 Triage completed. kg 11:05 Patient has correct armband on for positive identification. kg 12:59 Martin Mak PA is PHCP. cp 12:59 Dhiraj Rivera MD is Attending Physician. cp 13:19 Bassem Galeana, RN is Primary Nurse. jd3 13:20 Arm band placed on. jd3 13:41 No provider procedures requiring assistance completed. Patient did not have IV access jd3 during this emergency room visit. Administered Medications: No medications were administered Outcome: 13:30 Discharge ordered by . cp 13:41 Discharged to home ambulatory. jd3 13:41 Condition: stable 13:41 Discharge instructions given to patient, Instructed on discharge instructions, follow up and referral plans. Demonstrated understanding of instructions, follow-up care. 13:41 Patient left the ED. jd3 Signatures: Klaudia Phelan as Martin Mak PA PA cp Bassem Galeana, RN RN jd3 Kylee Vernon, RN RN kg
[2021-04-08 10:16] VITALS: BP 123/66; TEMP 98.7
[2021-04-08 10:19] VITALS: O2SAT 99
== END 2021-04-07 13:41 | disposition home or self-care (01) ==
LOC: ER 10:10
DX: J02.9 Acute pharyngitis, unspecified (principal); Z20.822 Contact with and (suspected) exposure to COVID-19; Z88.2 Allergy status to sulfonamides
CPT/HCPCS: 87070; 87081; 99281; U0003

== ENCOUNTER 2021-04-13 09:01 | Emergency (ER) | payer BC ==
--- NOTE | 2021-04-13 11:06 | EDPHYS ---
Physician Documentation [facility] Name: Curtsi Carbone Age: 31 yrs Sex: Male : 1990 Arrival Date: 04/13/2021 Time: 09:02 Bed Waiting Private MD: ED Physician Martin Guerrero HPI: 04/13 10:25 This 31 yrs old Male presents to ER via Ambulatory with complaints of covid jr8 test. 10:25 31-year-old male patient presented to emergency room today after talking with his PCP joshua about needing to go back to work. Patient had fever cough congestion several days ago and tested negative for Covid. Was concerned that he may have been tested too early and wanted him to have a retest before being able to go back to work. Patient feeling well at this time and asymptomatic. All symptoms had resolved since last week.. Severity of symptoms: At their worst the symptoms were mild in the emergency department the symptoms are unchanged. The patient has not experienced similar symptoms in the past. The patient has been recently seen by a physician:. Historical: - Allergies: 09:28 Sulfa (Sulfonamide Antibiotics); iw - PSHx: 09:28 Appendectomy; Cholecystectomy; iw ROS: 10:25 Constitutional: Negative for fever, chills, and weight loss, ENT: Negative for injury, jr8 pain, and discharge, Neck: Negative for injury, pain, and swelling, Cardiovascular: Negative for chest pain, palpitations, and edema, Respiratory: Negative for shortness of breath, cough, wheezing, and pleuritic chest pain, Abdomen/GI: Negative for abdominal pain, nausea, vomiting, diarrhea, and constipation, Back: Negative for injury and pain, MS/Extremity: Negative for injury and deformity, Skin: Negative for injury, rash, and discoloration, Neuro: Negative for headache, weakness, numbness, tingling, and seizure. Exam: 10:25 Constitutional: This is a well developed, well nourished patient who is awake, alert, jr8 and in no acute distress. ENT: Nares patent. No nasal discharge, no septal abnormalities noted. Tympanic membranes are normal and external auditory canals are clear. Oropharynx with no redness, swelling, or masses, exudates, or evidence of obstruction, uvula midline. Mucous membranes moist. Neck: Trachea midline, no thyromegaly or masses palpated, and no cervical lymphadenopathy. Supple, full range of motion without nuchal rigidity, or vertebral point tenderness. No Meningismus. Cardiovascular: Regular rate and rhythm with a normal S1 and S2. No gallops, murmurs, or rubs. Normal PMI, no JVD. No pulse deficits. Respiratory: Lungs have equal breath sounds bilaterally, clear to auscultation and percussion. No rales, rhonchi or wheezes noted. No increased work of breathing, no retractions or nasal flaring. Abdomen/GI: Soft, non-tender, with normal bowel sounds. No distension or tympany. No guarding or rebound. No evidence of tenderness throughout. Skin: Warm, dry with normal turgor. Normal color with no rashes, no lesions, and no evidence of cellulitis. MS/ Extremity: Pulses equal, no cyanosis. Neurovascular intact. Full, normal range of motion. Neuro: Awake and alert, GCS 15, oriented to person, place, time, and situation. Cranial nerves II-XII grossly intact. Motor strength 5/5 in all extremities. Sensory grossly intact. Cerebellar exam normal. Normal gait. Vital Signs: 09:26 BP 127 / 89; Pulse 74; Resp 16; Temp 98.7; Pulse Ox 99% on R/A; iw MDM: 09:46 Patient medically screened. jr8 10:25 Data reviewed: vital signs, nurses notes, lab test result(s), and as a result, I will jr8 discharge patient. Data interpreted: Pulse oximetry: on room air is 99 %. Interpretation: normal. Counseling: I had a detailed discussion with the patient and/or guardian regarding: the historical points, exam findings, and any diagnostic results supporting the discharge/admit diagnosis, lab results, the need for outpatient follow up, a family practitioner, to return to the emergency department if symptoms worsen or persist or if there are any questions or concerns that arise at home. 04/13 11:01 Order name: SARS-COV-2 RT PCR; Complete Time: 11:04 EDMS Administered Medications: No medications were administered Disposition: 04/14 07:04 Co-signature as Attending Physician, Martin Guerrero MD I agree with the assessment and mary plan of care. Disposition Summary: 04/13/21 11:05 Discharge Ordered Location: Home [facility] Problem: new jr8 Symptoms: have improved jr8 Condition: Stable jr8 Diagnosis - Encounter for COVID-19 Testing (negative) jr8 Followup: jr8 - With: Private Physician - When: 2 - 3 days - Reason: Recheck today's complaints, Continuance of care, Re-evaluation by your physician Discharge Instructions: - Discharge Summary Sheet jr8 - COVID-19 jr8 Forms: - Medication Reconciliation Form jr8 - Thank You Letter jr8 - Antibiotic Education jr8 - Prescription Opioid Use jr8 Signatures: Dispatcher [employer] EDMartin Weber MD MD cha Williams, Irene, RN RN iw Freddy Mota PA PA jr8 Corrections: (The following items were deleted from the chart) 04/13 10:03 09:33 CORONAVIRUS+MR.LAB.BRZ ordered. [facility]
--- NOTE | 2021-04-13 11:06 | ER ---
Nurse's Notes [facility] Name: Curtis Carbone Age: 31 yrs Sex: Male : 1990 Arrival Date: 04/13/2021 Time: 09:02 Bed Waiting Private MD: Diagnosis: Encounter for COVID-19 Testing (negative) Presentation: 04/13 09:26 Chief complaint: Patient states: his PCP wants him to have a repeat COVID test, was iw negative on April 07, has sinus pain and congestion. Coronavirus screen: Client presents with at least one sign or symptom that may indicate coronavirus-19. Ebola Screen: Patient negative for fever greater than or equal to 101.5 degrees Fahrenheit, and additional compatible Ebola Virus Disease symptoms Patient denies exposure to infectious person. Patient denies travel to an Ebola-affected area in the 21 days before illness onset. No symptoms or risks identified at this time. Initial Sepsis Screen: Does the patient meet any 2 criteria? No. Patient's initial sepsis screen is negative. Does the patient have a suspected source of infection? No. Patient's initial sepsis screen is negative. Risk Assessment: Do you want to hurt yourself or someone else? Patient reports no desire to harm self or others. Onset of symptoms was April 13, 2021. 09:26 Method Of Arrival: Ambulatory iw 09:26 Acuity: RAMIREZ 4 iw Historical: - Allergies: 09:28 Sulfa (Sulfonamide Antibiotics); iw - PSHx: 09:28 Appendectomy; Cholecystectomy; iw Vital Signs: 09: BP 127 / 89; Pulse 74; Resp 16; Temp 98.7; Pulse Ox 99% on R/A; iw ED Course: 09:02 Patient arrived in ED. am2 09:28 Triage completed. iw 09:43 [facility]. jr8 09:43 Martin Guerrero MD is Attending Physician. jr8 11:28 Ernestina Alas RN is Primary Nurse. iw Administered Medications: No medications were administered Outcome: 11:05 Discharge ordered by . jr8 11:28 Patient left the ED. iw Signatures: Ernestina Alas RN RN iw Freddy Mota PA PA jr8 Julia Sunshine am2
[2021-04-13 11:36] VITALS: BP 127/89; TEMP 98.7; O2SAT 99
== END 2021-04-13 11:28 | disposition home or self-care (01) ==
LOC: ER 09:01
DX: Z20.822 Contact with and (suspected) exposure to COVID-19 (principal)
CPT/HCPCS: 99281; U0003

== ENCOUNTER 2021-09-11 17:57 | Emergency (ER) | payer BC ==
[2021-09-11 20:38] LABS: SARS-COV-2 RT PCR NEGATIVE (NEGATIVE)
--- NOTE | 2021-09-11 22:58 | ER ---
Nurse's Notes [facility] Name: Curtis Carbone Age: 31 yrs Sex: Male : 1990 Arrival Date: 09/11/2021 Time: 17:59 Bed Treatment Private MD: Diagnosis: Viral syndrome Presentation: 09/11 19:24 Chief complaint: Patient states: he has been sick for several days and his tested bb positive for Covid. Coronavirus screen: muscle pain. Ebola Screen: No symptoms or risks identified at this time. Initial Sepsis Screen: Does the patient meet any 2 criteria? No. Patient's initial sepsis screen is negative. Does the patient have a suspected source of infection? No. Patient's initial sepsis screen is negative. Risk Assessment: Do you want to hurt yourself or someone else? Patient reports no desire to harm self or others. Onset of symptoms was September 06, 2021. 19:24 Method Of Arrival: Ambulatory bb 19:24 Acuity: RAMIREZ 4 bb Triage Assessment: 19:27 General: Appears in no apparent distress. Behavior is calm, cooperative. Pain: bb Complains of pain in generalized Pain currently is 2 out of 10 on a pain scale. Neuro: Level of Consciousness is awake, alert, obeys commands, Oriented to person, place, time, situation. Cardiovascular: Capillary refill < 3 seconds Patient's skin is warm and dry. Respiratory: Airway is patent Respiratory effort is even, unlabored, Respiratory pattern is regular. GI: No signs and/or symptoms were reported involving the gastrointestinal system. Derm: Skin is dry, Skin is normal, Skin temperature is warm. Musculoskeletal: Circulation, motion, and sensation intact. Historical: - Allergies: 19:27 Sulfa (Sulfonamide Antibiotics); bb - Home Meds: 19:27 None [Active]; bb - PSHx: 19:27 Appendectomy; Cholecystectomy; bb - Immunization history:: Adult Immunizations up to date, Client reports having NOT received the Covid vaccine. - Social history:: Smoking status: Patient denies any tobacco usage or history of. Screenin:19 Abuse screen: Denies threats or abuse. Nutritional screening: No deficits noted. bb Tuberculosis screening: No symptoms or risk factors identified. Fall Risk None identified. Assessment: 23:19 Reassessment: No changes from previously documented assessment. Patient is alert, bb oriented x 3, equal unlabored respirations, skin warm/dry/pink. pt verbalized understanding of and agrees to plan of care discharge instructions given pt ambulated with steady gait to exit. Vital Signs: 19:24 BP 112 / 80; Pulse 70; Resp 16 S; Temp 99.6(O); Pulse Ox 98% on R/A; Weight 64.86 kg bb (R); Height 5 ft. 5 in. (165.10 cm) (R); Pain 2/10; 23:21 BP 115 / 74; Pulse 74; Resp 16; Temp 98.1; Pulse Ox 100% ; lt3 19:24 Body Mass Index 23.80 (64.86 kg, 165.10 cm) bb ED Course: 17:59 Patient arrived in ED. ds1 19:27 Triage completed. bb 19:27 Arm band placed on. bb 19:41 COVID swab sent to lab. Flu and/or RSV swab sent to lab. lt3 22:31 Dominic Hoffmann MD is Attending Physician. [facility] 23:19 Patient has correct armband on for positive identification. bb 23:19 No provider procedures requiring assistance completed. Patient did not have IV access bb during this emergency room visit. Administered Medications: No medications were administered Outcome: 22:58 Discharge ordered by . [facility] 23:26 Patient left the ED. bb Signatures: Whit Watkins ds1 Yessenia Keller, RN RN bb Dominic Hoffmnan MD MD 7 Ree G[place] lt3
--- NOTE | 2021-09-11 22:58 | EDPHYS ---
Physician Documentation [facility] Name: Curtis Carbone Age: 31 yrs Sex: Male : 1990 Arrival Date: 09/11/2021 Time: 17:59 Bed Treatment Private MD: ED Physician Dominic Hoffmann HPI: 09/11 22:53 This 31 yrs old Male presents to ER via Ambulatory with complaints of Covid mh7 Test- Sore Throat, Runny Nose. 22:53 The patient or guardian reports cough, that is intermittent, described as mild, with no mh7 sputum, Runny nose, congestion, scratchy throat. Onset: The symptoms/episode began/occurred 4 day(s) ago. Severity of symptoms: At their worst the symptoms were very mild, 4 day(s) ago, in the emergency department the symptoms have improved, moderately. Modifying factors: The symptoms are alleviated by nothing, the symptoms are aggravated by nothing. Associated signs and symptoms: Pertinent negatives: chest pain, diarrhea, ear ache, fever, nausea, vomiting. Patient states that his tested positive for Covid. He also states that his company wanted him to get tested so he came to the ED.. Historical: - Allergies: 19:27 Sulfa (Sulfonamide Antibiotics); bb - Home Meds: 19:27 None [Active]; bb - PSHx: 19:27 Appendectomy; Cholecystectomy; bb - Immunization history:: Adult Immunizations up to date, Client reports having NOT received the Covid vaccine. - Social history:: Smoking status: Patient denies any tobacco usage or history of. ROS: 22:53 Constitutional: Negative for fever, chills, and weight loss, Eyes: Negative for injury, mh7 pain, redness, and discharge, Neck: Negative for injury, pain, and swelling, Cardiovascular: Negative for chest pain, palpitations, and edema, Abdomen/GI: Negative for abdominal pain, nausea, vomiting, diarrhea, and constipation, Back: Negative for injury and pain, : Negative for injury, bleeding, discharge, and swelling, MS/Extremity: Negative for injury and deformity, Skin: Negative for injury, rash, and discoloration, Neuro: Negative for headache, weakness, numbness, tingling, and seizure, Psych: Negative for depression, anxiety, suicide ideation, homicidal ideation, and hallucinations, Allergy/Immunology: Negative for hives, rash, and allergies, Endocrine: Negative for neck swelling, polydipsia, polyuria, polyphagia, and marked weight changes, Hematologic/Lymphatic: Negative for swollen nodes, abnormal bleeding, and unusual bruising. Exam: 22:53 Constitutional: This is a well developed, well nourished patient who is awake, alert, mh7 and in no acute distress. Head/Face: Normocephalic, atraumatic. Eyes: Pupils equal round and reactive to light, extra-ocular motions intact. Lids and lashes normal. Conjunctiva and sclera are non-icteric and not injected. Cornea within normal limits. Periorbital areas with no swelling, redness, or edema. ENT: Nares patent. No nasal discharge, no septal abnormalities noted. Tympanic membranes are normal and external auditory canals are clear. Oropharynx with no redness, swelling, or masses, exudates, or evidence of obstruction, uvula midline. Mucous membranes moist. Neck: Trachea midline, no thyromegaly or masses palpated, and no cervical lymphadenopathy. Supple, full range of motion without nuchal rigidity, or vertebral point tenderness. No Meningismus. Chest/axilla: Normal chest wall appearance and motion. Nontender with no deformity. No lesions are appreciated. Cardiovascular: Regular rate and rhythm with a normal S1 and S2. No gallops, murmurs, or rubs. Normal PMI, no JVD. No pulse deficits. Respiratory: Lungs have equal breath sounds bilaterally, clear to auscultation and percussion. No rales, rhonchi or wheezes noted. No increased work of breathing, no retractions or nasal flaring. Abdomen/GI: Soft, non-tender, with normal bowel sounds. No distension or tympany. No guarding or rebound. No evidence of tenderness throughout. Back: No spinal tenderness. No costovertebral tenderness. Full range of motion. Skin: Warm, dry with normal turgor. Normal color with no rashes, no lesions, and no evidence of cellulitis. MS/ Extremity: Pulses equal, no cyanosis. Neurovascular intact. Full, normal range of motion. Neuro: Awake and alert, GCS 15, oriented to person, place, time, and situation. Cranial nerves II-XII grossly intact. Motor strength 5/5 in all extremities. Sensory grossly intact. Cerebellar exam normal. Normal gait. Psych: Awake, alert, with orientation to person, place and time. Behavior, mood, and affect are within normal limits. Vital Signs: 19:24 BP 112 / 80; Pulse 70; Resp 16 S; Temp 99.6(O); Pulse Ox 98% on R/A; Weight 64.86 kg (R); Height 5 ft. 5 in. (165.10 cm) (R); Pain 2/10; 23:21 BP 115 / 74; Pulse 74; Resp 16; Temp 98.1; Pulse Ox 100% ; lt3 19:24 Body Mass Index 23.80 (64.86 kg, 165.10 cm) MDM: 22:56 Differential Diagnosis: Bronchitis Influenza Upper Respiratory Infection Pharyngitis mh7 Allergic Rhinitis Viral Syndrome. Data reviewed: vital signs, nurses notes, lab test result(s), Flu: negative Covid negative. Data interpreted: Pulse oximetry: on room air is 98 %. Interpretation: normal. Counseling: I had a detailed discussion with the patient and/or guardian regarding: the historical points, exam findings, and any diagnostic results supporting the discharge/admit diagnosis, lab results, the need for outpatient follow up. Response to treatment: the patient's symptoms have markedly improved after treatment. 22:58 Patient medically screened. [facility] 09/11 19:30 Order name: COVID-19 SARS RT PCR (Document "Date of Onset" if Symptomatic) 09/11 19:30 Order name: Flu 09/11 19:45 Order name: COVID-19/FLU A+B; Complete Time: 22:34 EDMS Administered Medications: No medications were administered Disposition Summary: 09/11/21 22:58 Discharge Ordered Location: Home [facility] Problem: new [facility] Symptoms: have improved [facility] Condition: Stable [facility] Diagnosis - Viral syndrome [facility] Followup: [facility] - With: Private Physician - When: 1 - 2 days - Reason: Worsening of condition, Recheck today's complaints, Continuance of care, Re-evaluation by your physician Discharge Instructions: - Discharge Summary Sheet [facility] - Viral Illness, Adult [facility] Forms: - Medication Reconciliation Form [facility] - Thank You Letter [facility] - Antibiotic Education [facility] - Prescription Opioid Use [facility] Signatures: Dispatcher [employer] EDMS Yessenia Keller, RN RN Dominic Sanchez MD MD mh7 Corrections: (The following items were deleted from the chart) : SARS-COV-2 RT PCR ordered. EDMS EDMS 19:31 Influenza Screen (A ordered. EDMS EDMS
[2021-09-11 23:31] VITALS: BP 115/74; TEMP 98.1; O2SAT 100
== END 2021-09-11 23:26 | disposition home or self-care (01) ==
LOC: ER 17:57
DX: B34.9 Viral infection, unspecified (principal); Z20.822 Contact with and (suspected) exposure to COVID-19; Z88.2 Allergy status to sulfonamides
CPT/HCPCS: 0240U; 99283

== ENCOUNTER 2021-09-17 10:57 | Emergency (ER) | payer BC ==
--- NOTE | 2021-09-17 12:15 | ER ---
Nurse's Notes [facility] Name: Curtis Carbone Age: 31 yrs Sex: Male : 1990 Arrival Date: 09/17/2021 Time: 11: Bed Waiting Private MD: Charlie Richardson C Diagnosis: ED Course: 09/17 11:01 Patient arrived in ED. am2 11:01 Charlie Richardson MD is Private Physician. am2 Administered Medications: No medications were administered Outcome: 12:13 Eloped from waiting room, before seeing physician Time discovered patient gone: September tw2021 at 12:14 12:13 unknown 12:15 Patient left the ED. tw Signatures: Clara Victoria RN RN tw2 Julia Sunshine am2
== END 2021-09-17 12:15 | disposition left against medical advice (07) ==
LOC: ER 10:57
DX: Z02.89 Encounter for other administrative examinations (principal)

== ENCOUNTER 2021-10-09 11:13 | Emergency (ER) | payer BC ==
--- NOTE | 2021-10-09 11:26 | ER ---
Nurse's Notes [facility] Name: Curtis Carbone Age: 31 yrs Sex: Male : 1990 Arrival Date: 10/09/2021 Time: 11:15 Bed Waiting Private MD: Diagnosis: Encounter for screening, unspecified Presentation: 10/09 11:17 Chief complaint: Patient states: 'I have a cyst forming on my Right ankle for about a vg1 week'. States pain is 'unbearable' and 'its hard to do my job' bc of the pain. Coronavirus screen: Vaccine status: Patient reports being unvaccinated. Client denies travel out of the [place] in the last 14 days. Ebola Screen: Patient negative for fever greater than or equal to 101.5 degrees Fahrenheit, and additional compatible Ebola Virus Disease symptoms. Initial Sepsis Screen: Does the patient meet any 2 criteria? No. Patient's initial sepsis screen is negative. Does the patient have a suspected source of infection? No. Patient's initial sepsis screen is negative. Risk Assessment: Do you want to hurt yourself or someone else? Patient reports no desire to harm self or others. Onset of symptoms was October 01, 2021. 11:17 Method Of Arrival: Ambulatory [facility] 11:17 Acuity: RAMIREZ 4 vg1 Triage Assessment: 11:23 General: Appears comfortable, Behavior is calm, cooperative. Pain: Complains of pain in vg1 right medial malleolus. Musculoskeletal: Circulation, motion, and sensation intact. Historical: - Allergies: 11:23 Sulfa (Sulfonamide Antibiotics); vg1 - PSHx: 11:23 Appendectomy; Cholecystectomy; vg1 - Immunization history:: Client reports having NOT received the Covid vaccine. - Social history:: Smoking status: Patient denies any tobacco usage or history of. Screenin:27 Abuse screen: Denies threats or abuse. Nutritional screening: No deficits noted. vg1 Tuberculosis screening: No symptoms or risk factors identified. Fall Risk None identified. Vital Signs: 11:17 Pulse 76; Resp 16; Temp 98.2; Pulse Ox 100% ; Weight 62.6 kg; Height 5 ft. 5 in. vg1 (165.10 cm); Pain 5/10; 11:17 Body Mass Index 22.97 (62.60 kg, 165.10 cm) vg1 ED Course: 11:15 Patient arrived in ED. rg4 11: Yessi Paulson FNP-C is [facility]. kb 11:21 Martin Guerrero MD is Attending Physician. kb 11:23 Triage completed. vg1 11:23 Arm band placed on. vg1 11:27 Patient has correct armband on for positive identification. vg1 11: No provider procedures requiring assistance completed. Patient did not have IV access vg1 during this emergency room visit. Administered Medications: No medications were administered Outcome: 11: Discharge ordered by . kb 11:27 Medical screen evaluation completed per provider. Patient declined treatment. vg1 11:27 Condition: good 11: Patient left the ED. vg1 Signatures: Yessi Paulson FNP-C FNP-Gypsy Sam rg4 Adriana Espinal, RN RN vg1
--- NOTE | 2021-10-09 11:26 | EDPHYS ---
Physician Documentation [facility] Name: Curtis Carbone Age: 31 yrs Sex: Male : 1990 Arrival Date: 10/09/2021 Time: 11:15 Bed Waiting Private MD: PRIYA Physician Martin Guerrero HPI: 10/09 11:29 This 31 yrs old Male presents to ER via Ambulatory with complaints of Abscess. kb 11:29 "maybe a cyst forming". Description: hard lump. Onset: The symptoms/episode kb began/occurred 1 week(s) ago. Possible cause(s): unknown. Associated signs and symptoms: The patient has no apparent associated signs or symptoms. Modifying factors: the symptoms are alleviated by nothing, the symptoms are aggravated by pressure, touching. Severity of symptoms: At their worst the symptoms were mild, in the emergency department the symptoms are unchanged. The patient has not experienced similar symptoms in the past. The patient has not recently seen a physician. Historical: - Allergies: 11:23 Sulfa (Sulfonamide Antibiotics); vg1 - PSHx: 11:23 Appendectomy; Cholecystectomy; vg1 - Immunization history:: Client reports having NOT received the Covid vaccine. - Social history:: Smoking status: Patient denies any tobacco usage or history of. ROS: 11:28 Constitutional: Negative for fever, chills, and weight loss. kb 11:28 MS/extremity: Positive for pain, of the right medial malleolus, lump. 11:28 All other systems are negative. Exam: 11:28 Constitutional: This is a well developed, well nourished patient who is awake, alert, kb and in no acute distress. Head/Face: Normocephalic, atraumatic. ENT: Moist Mucous membranes Respiratory: Respirations even and unlabored. No increased work of breathing. Talking in full sentences Skin: Warm, dry with normal turgor. Normal color. MS/ Extremity: Pulses equal, no cyanosis. Neurovascular intact. Full, normal range of motion. Neuro: Awake and alert, GCS 15, oriented to person, place, time, and situation. Moves all extremities. Normal gait. Psych: Awake, alert, with orientation to person, place and time. Behavior, mood, and affect are within normal limits. 11:28 Musculoskeletal/extremity: Extremities: grossly normal except: noted in the right medial malleolus: pain, tenderness, small mass, ROM: no acute changes, Circulation is intact in all extremities. Sensation intact. Vital Signs: 11:17 Pulse 76; Resp 16; Temp 98.2; Pulse Ox 100% ; Weight 62.6 kg; Height 5 ft. 5 in. vg1 (165.10 cm); Pain 5/10; 11:17 Body Mass Index 22.97 (62.60 kg, 165.10 cm) vg1 MDM: 11:21 Patient medically screened. kb 11:21 Data reviewed: vital signs, nurses notes. Data interpreted: Pulse oximetry: on room air kb is 100 %. Interpretation: normal. Counseling: I had a detailed discussion with the patient and/or guardian regarding: the historical points, exam findings, and any diagnostic results supporting the discharge/admit diagnosis, the need for outpatient follow up, a family practitioner, to return to the emergency department if symptoms worsen or persist or if there are any questions or concerns that arise at home. Administered Medications: No medications were administered Disposition: 11:21 small mass right medial ankle. kb Disposition Summary: 10/09/21 11:25 Discharge Ordered Location: Home kb Condition: Stable kb Diagnosis - Encounter for screening, unspecified kb Followup: kb - With: Emergency Department - When: As needed - Reason: Worsening of condition Followup: kb - With: Private Physician - When: 2 - 3 days - Reason: Recheck today's complaints, Continuance of care, Re-evaluation by your physician Discharge Instructions: - Discharge Summary Sheet kb Forms: - Medication Reconciliation Form kb - Thank You Letter kb - Antibiotic Education kb - Prescription Opioid Use kb Addendum: 10/10/2021 13:21 Co-signature as Attending Physician, Martin Guerrero MD I agree with the assessment and c fountain plan of care. Signatures: Yessi Paulson, NURSE TRANSPLANT-C NURSE TRANSPLANT-Martin Navarrete MD MD cha Garcia, Victoria, RN RN vg1
[2021-10-09 11:48] VITALS: TEMP 98.2; O2SAT 100
== END 2021-10-09 11:27 | disposition home or self-care (01) ==
LOC: ER 11:13
DX: R22.41 Localized swelling, mass and lump, right lower limb (principal); Z88.2 Allergy status to sulfonamides
CPT/HCPCS: 99281

== ENCOUNTER 2023-06-21 15:22 | Emergency (ER) | payer BC ==
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
[2023-06-21] MEDS ORDERED: AMOXICILLIN TRIHYDR 250 MG CAP ONE (17:14)
[2023-06-21 17:52] LABS: Absolute Lymphocytes (CBC) 1.8 K/uL (0.7-4.9); Hematocrit 40.4 % (39.6-49.0); Lymphocytes % 19.4 % (15.3-44.8); MCV 85.8 fL (80-100); MPV 8.2 fL (7.6-11.3); Platelets 236 thou/uL (152-406); RBC Red Blood Cell Count 4.71 M/uL (4.33-5.43)
[2023-06-21 18:09] LABS: Potassium 3.6 mEq/L (3.5-5.1)
--- NOTE | 2023-06-21 18:41 | RAD REPORT ---
EXAM DESCRIPTION: CT - Soft Tissue Neck W/Contr CLINICAL HISTORY: Left submandibular pain Pain and swelling to face and COMPARISON: No comparisons TECHNIQUE All CT scans are performed using dose optimization technique as appropriate and may includ e automated exposure control or mA/KV adjustment according to patient size. FINDINGS: Nasopharyngeal tissues are normal in appearance. Fossa Rosenmller are normal. Parapharyngeal fat triangles are symmetric. Tongue base structures are normal. Normal size thyroid gl and. A few mildly prominent lymph nodes seen left jugulodigastric chain. Soft tissue swelling is seen left submandibular region. There are several prominent lymph nodes in th e region as well, largest measuring 8 mm in short axis. No evidence of mandibular fracture seen. The posterior left mandibular molar contains a prominent erosion. No drainable fluid collection seen in t he region. 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 IMPRESSION: Mild to moderate soft tissue swelling with enlarged lymph nodes seen left submandibular and perimandibular tissues. This could be related to an odontogenic source given large erosion in the left posterior mandibular molar. No drainable fluid collection. No mandibular fracture evident.
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
[2023-06-21] MEDS ORDERED: CLINDAMYCIN 900MG/D5W 900 MG/50 ML IVPB IV ONE (19:29)
[2023-06-21 20:04] VITALS: BP 136/78; O2SAT 100
[2023-06-21 20:10] VITALS: TEMP 98.5
== END 2023-06-21 19:50 | disposition home or self-care (01) ==
LOC: ER 15:22
DX: K02.9 Dental caries, unspecified (principal); Z88.2 Allergy status to sulfonamides
CPT/HCPCS: 85025; 80048; 36415; 70491; 70100; Q9967